=== PATIENT | male | born 1965 | race Caucasian/White ===

== ENCOUNTER 2024-02-24 20:15 | Observation (INO) | payer BC, OTHER ==
[2024-02-24] MEDS ORDERED: Hydromorphone 1 mg/ml Injection IV PRN (21:40)
[2024-02-24 21:44] LABS: Absolute Neutrophil Ct (ANC) 6.49 x10^3/uL (1.78-5.38); BASOPHIL % 0.2 % (0.2-1.2); Basophil (Absolute #) 0.02 x10^3/uL (0.01-0.08); Eosinophil % 0.8 % (0.8-7.0); Eosinophil (Absolute #) 0.07 x10^3/uL (0.04-0.54); Hemoglobin 13.3 g/dL (13.7-17.5); IMMATURE GRAN # 0.05 x10^3u/L (0.001-0.031); IMMATURE GRAN % 0.6 % (0.001-0.429); Lymphocyte (Absolute #) 1.31 x10^3/uL (1.32-3.57); Lymphocytes % 15.7 % (21.8-53.1); Mean Cell Volume 87.4 fL (79.0-92.2); Mean Corpuscular Hemoglobin 28.4 pg (25.7-32.2); Mean Corpuscular Hgb Concent. 32.4 g/dL (32.3-36.5); Mean Platelet Volume 10.7 fL (9.4-12.4); Monocytes % 4.8 % (5.3-12.2); Neutrophil % 77.9 % (34.0-67.9); Platelet Count 222 x10^3/uL (163-337); Red Blood Count 4.69 x10^6/uL (4.63-6.08); Red Cell Distribution Width 13.2 % (11.6-14.4); White Blood Count 8.3 x10^3/uL (4.23-9.07)
[2024-02-24] MEDS ORDERED: Zofran 4 MG/2 ML VIAL ONE (21:44)
[2024-02-24] MEDS ORDERED: Sodium Chloride 0.9% 1000 ML 1,000 ML ONE (21:44)
[2024-02-24] MEDS ORDERED: Hydromorphone 1 mg/ml Injection ONE (21:44)
--- NOTE | 2024-02-24 21:44 | ERPHSYRPT ---
- History of Present Illness Time Seen by Provider: 02/24/24 21:30 Historian: patient Exam Limitations: no limitations Patient Subjective Stated Complaint: pt was at work when he got dizzy and lightheaded that has since resolved. pt now c/o upper abd pain/epigastric pain a fter drinking a "bunch of water" Triage Nursing Assessment: pt ambulatory to bed by self with steady gait, pt alert and oriented x3, skin pwd, pt c/o upper abd pain/epigastric since 1899, slight nausea, pt had BM today that was normal per patient, abd distended. tender upon palpitation. Timing/Duration: today Activities at Onset: none Quality: aching, burning, cramping, dullness, fullness, sharpness, stabbing, throbbing Abdominal Pain Onset Location: RUQ, RLQ Pain Radiation: no radiation Severity of Pain-Max: mild Severity of Pain-Current: mild Modifying Factors: Improves With: nothing Associated Symptoms: denies symptoms Previous symptoms: no prior history Allergies/Adverse Reactions: No Known Drug Allergies Allergy (Verified 02/24/24 20:50) Home Medications: Fluoxetine HCl [Prozac] 20 mg PO DAILY 12/07/15 [History] Metoprolol Succinate 25 mg Xl* [Toprol-Xl 25MG Tablets] 25 mg PO DAILY 12/07/15 [History] PANTOPRAZOLE 40 mg Tablet [Protonix 40MG Tablet] 40 mg PO DAILY 12/07/15 [History] Rosuvastatin Calcium 10 mg PO DAILY 02/24/24 [History] Hx Tetanus, Diphtheria Vaccination/Date Given: Yes Hx Influenza Vaccination/Date Given: No Hx Pneumococcal Vaccination/Date Given: No Immunizations Up to Date: No Travel Risk - International Travel If Yes, where;: N - Emerging Infectious Disease Are you exhibiting symptoms associated with any current EIDs: Yes Symptoms: Abdominal Pain - Review of Systems Eyes: No Symptoms Ears, Nose, & Throat: No Symptoms Respiratory: No Symptoms Cardiac: No Symptoms Abdominal/Gastrointestinal: No Symptoms, Abdominal Pain, Nausea Genitourinary Symptoms: No Symptoms Musculoskeletal: No Symptoms - Past Medical History Pertinent Past Medical History: Yes Neurological History: No Pertinent History ENT History: No Pertinent History Cardiac History: High Cholesterol, Hypertension Respiratory History: No Pertinent History Endocrine Medical History: No Pertinent History Musculoskeletal History: No Pertinent History GI Medical History: GERD History: No Pertinent History Psycho-Social History: No Pertinent History Male Reproductive Disorders: No Pertinent History - Past Surgical History Past Surgical History: Yes Neuro Surgical History: No Pertinent History Cardiac: Cardiac Catheterization Respiratory: No Pertinent History Gastrointestinal: No Pertinent History Genitourinary: No Pertinent History Musculoskeletal: Orthopedic Surgery Male Surgical History: No Pertinent History Other Surgical History: knee, neck - Social History Smoking Status: Never smoker Exposure to second hand smoke: No Drug Use: none Patient Lives Alone: No - Social Determinants of Health Will the patient participate in the screening: Yes Do you worry about a steady place to live?: No Do you have any problems with any of the following?: No known problems In the past 12 months,have you had to go without utilities?: No Transportation Issues: No Has anyone in your support network made you feel unsafe?: No Have you or anyone in your house had to go without enough: No - Nursing Vital Signs Nursing Vital Signs: Initial Vital Signs Temperature 97.7 F 02/24/24 20:54 Pulse Rate 64 02/24/24 20:54 Respiratory Rate 21 02/24/24 20:54 Blood Pressure 182/87 02/24/24 20:54 O2 Sat by Pulse Oximetry 99 02/24/24 20:54 Pain Scale Pain Intensity 5 - Physical Exam General Appearance: mild distress Eye Exam: PERRL/EOMI Ears, Nose, Throat Exam: normal ENT inspection Respiratory Exam: normal breath sounds Cardiovascular Exam: regular rate/rhythm Gastrointestinal/Abdomen Exam: soft, tenderness, rebound, other (Patient is tender in the right upper quadrant and right lower quadrant with guarding and rebound) Rectal Exam: deferred SpO2: 99 Ordered Tests: Active Orders 24 hr Category Date Time Status ABDOMEN AND PELVIS W CONTRAST [CT] Stat Exams 02/24/24 21:39 Completed AMYLASE Stat Lab 02/24/24 21:30 Completed CBC W DIFF Stat Lab 02/24/24 21:30 Completed CMP Stat Lab 02/24/24 21:30 Completed Lactic Acid Stat Lab 02/24/24 21:39 Completed UA W/RFX UR CULTURE Stat Lab 02/24/24 23:14 Completed Transfer Order Routine Transfer 02/25/24 Ordered Medication Summary Generic Name Dose Route Start Last Admin Trade Name Freq PRN Reason Stop Dose Admin Hydromorphone HCl 1 mg 02/24/24 21:40 Hydromorphone 1 Mg/1ml Inj IV 02/29/24 21:39 Q4H PRN PRN PAIN Discontinued Medications Generic Name Dose Route Start Last Admin Trade Name Fara PRN Reason Stop Dose Admin Hydromorphone HCl 1 mg 02/25/24 00:21 02/25/24 00:33 Hydromorphone 1 Mg/1ml Inj IV 02/25/24 00:22 1 mg STAT ONE Administration Sodium Chloride 1,000 mls @ 999 mls/hr 02/24/24 21:41 02/24/24 23:12 Sodium Chloride 0.9% 1000 Ml IV 02/24/24 22:41 Infused .Q1H1M STA Infusion Sodium Chloride Confirm 02/24/24 21:44 Sodium Chloride 0.9% 1000 Ml Administered 02/24/24 21:45 Dose 1,000 mls @ ud .ROUTE .STK-MED ONE Ondansetron HCl 4 mg 02/24/24 21:40 02/24/24 21:47 Ondansetron Hcl 4 Mg/2 Ml Vial IV 02/24/24 21:41 4 mg STAT ONE Administration Ondansetron HCl Confirm 02/24/24 21:44 Ondansetron Hcl 4 Mg/2 Ml Vial Administered 02/24/24 21:45 Dose 4 mg .ROUTE .STK-MED ONE Ondansetron HCl 4 mg 02/25/24 00:22 02/25/24 00:33 Ondansetron Hcl 4 Mg/2 Ml Vial IV 02/25/24 00:23 4 mg STAT ONE Administration Ondansetron HCl Confirm 02/25/24 00:32 Ondansetron Hcl 4 Mg/2 Ml Vial Administered 02/25/24 00:33 Dose 4 mg .ROUTE .STK-MED ONE Lab/Rad Data: Laboratory Result Diagrams 02/24/24 21:30 02/24/24 21:30 Laboratory Results 02/24/24 02/24/24 02/24/24 Range/Units 23:14 21:39 21:30 WBC (4.23-9.07) x10^3/uL RBC (4.63-6.08) x10^6/uL Hgb (13.7-17.5) g/dL Hct (40.1-51.0) % MCV (79.0-92.2) fL MCH (25.7-32.2) pg MCHC (32.3-36.5) g/dL RDW (11.6-14.4) % Plt Count (163-337) x10^3/uL MPV (9.4-12.4) fL Gran % (34.0-67.9) % Immature Gran % (Auto) (0.001-0.429) % Nucleat RBC Rel Count (0.00-0.2) % Eos # (Auto) (0.04-0.54) x10^3/uL Immature Gran # (Auto) (0.001-0.031) x10^3u/L Absolute Lymphs (auto) (1.32-3.57) x10^3/uL Absolute Monos (auto) (0.30-0.82) x10^3/uL Absolute Nucleated RBC (0.00-0.012) x10^3u/L Lymphocytes % (21.8-53.1) % Monocytes % (5.3-12.2) % Eosinophils % (0.8-7.0) % Basophils % (0.2-1.2) % Absolute Granulocytes (1.78-5.38) x10^3/uL Basophils # (0.01-0.08) x10^3/uL Sodium 139 (135-145) mmol/L Potassium 3.8 (3.5-5.1) mmol/L Chloride 104 (98-107) mmol/L Carbon Dioxide 26 (22-30) mmol/L Anion Gap 12.6 (5-15) MEQ/L BUN 21 H (9-20) mg/dL Creatinine 1.12 (0.66-1.25) mg/dL Estimated GFR 77.1 ML/MIN Glucose 117 H (74-106) mg/dL Lactic Acid 1.5 (0.4-2.0) Calcium 9.2 (8.4-10.2) mg/dL Total Bilirubin 1.10 (0.2-1.3) mg/dL AST 155 H (17-59) U/L ALT 105 H (0-50) U/L Alkaline Phosphatase 165 H (38-126) U/L Serum Total Protein 6.8 (6.3-8.2) g/dL Albumin 4.1 (3.5-5.0) g/dL Amylase 73 (30-110) U/L Urine Color Yellow (Yellow) Urine Appearance Clear (Clear) Urine pH 5.5 (4.6-8.0) Ur Specific [place] >=1.030 A (1.005-1.030) Urine Protein Negative (Negative) Urine Glucose (UA) Negative (Negative) mg/dL Urine Ketones 15 A (Negative) Urine Blood Negative (Negative) Urine Nitrite Negative (Negative) Urine Bilirubin Negative (Negative) Urine Urobilinogen 1.0 A (0.2) mg/dL Ur Leukocyte Esterase Negative (Negative) U Hyaline Cast (Auto) NONE SEEN (0-2) /LPF Urine Microscopic RBC 0-2 (0-5) /HPF Urine Microscopic WBC 0-2 (0-5) /HPF Ur Epithelial Cells None Seen (None Seen) /HPF Urine Bacteria None Seen (None Seen) /HPF Urine Culture Reflexed NO (NO) 02/24/24 Range/Units 21:30 WBC 8.3 (4.23-9.07) x10^3/uL RBC 4.69 (4.63-6.08) x10^6/uL Hgb 13.3 L (13.7-17.5) g/dL Hct 41.0 (40.1-51.0) % MCV 87.4 (79.0-92.2) fL MCH 28.4 (25.7-32.2) pg MCHC 32.4 (32.3-36.5) g/dL RDW 13.2 (11.6-14.4) % Plt Count 222 (163-337) x10^3/uL MPV 10.7 (9.4-12.4) fL Gran % 77.9 H (34.0-67.9) % Immature Gran % (Auto) 0.6 H (0.001-0.429) % Nucleat RBC Rel Count 0.0 (0.00-0.2) % Eos # (Auto) 0.07 (0.04-0.54) x10^3/uL Immature Gran # (Auto) 0.05 H (0.001-0.031) x10^3u/L Absolute Lymphs (auto) 1.31 L (1.32-3.57) x10^3/uL Absolute Monos (auto) 0.40 (0.30-0.82) x10^3/uL Absolute Nucleated RBC 0.00 (0.00-0.012) x10^3u/L Lymphocytes % 15.7 L (21.8-53.1) % Monocytes % 4.8 L (5.3-12.2) % Eosinophils % 0.8 (0.8-7.0) % Basophils % 0.2 (0.2-1.2) % Absolute Granulocytes 6.49 H (1.78-5.38) x10^3/uL Basophils # 0.02 (0.01-0.08) x10^3/uL Sodium (135-145) mmol/L Potassium (3.5-5.1) mmol/L Chloride (98-107) mmol/L Carbon Dioxide (22-30) mmol/L Anion Gap (5-15) MEQ/L BUN (9-20) mg/dL Creatinine (0.66-1.25) mg/dL Estimated GFR ML/MIN Glucose (74-106) mg/dL Lactic Acid (0.4-2.0) Calcium (8.4-10.2) mg/dL Total Bilirubin (0.2-1.3) mg/dL AST (17-59) U/L ALT (0-50) U/L Alkaline Phosphatase (38-126) U/L Serum Total Protein (6.3-8.2) g/dL Albumin (3.5-5.0) g/dL Amylase (30-110) U/L Urine Color (Yellow) Urine Appearance (Clear) Urine pH (4.6-8.0) Ur Specific [place] (1.005-1.030) Urine Protein (Negative) Urine Glucose (UA) (Negative) mg/dL Urine Ketones (Negative) Urine Blood (Negative) Urine Nitrite (Negative) Urine Bilirubin (Negative) Urine Urobilinogen (0.2) mg/dL Ur Leukocyte Esterase (Negative) U Hyaline Cast (Auto) (0-2) /LPF Urine Microscopic RBC (0-5) /HPF Urine Microscopic WBC (0-5) /HPF Ur Epithelial Cells (None Seen) /HPF Urine Bacteria (None Seen) /HPF Urine Culture Reflexed (NO) - Progress Progress Note: Patient was seen and evaluated for abdominal pain labs and CT of the abdomen pelvis and IV fluids and analgesia was ordered 02/24/24 21:44 02/25/24 01:51 CT scan revealed few faintly radiodense calculi in the gallbladder with diffuse edematous wall thickening and mild pericholecystic edema appearances likely represent evolving acute calculus cholecystitis clinical and laboratory correlation is advised. Patient was informed of the need for surgical consultation I spoke with Dr. Laurent the surgeon on-call , he was updated with lab results and the CT results he wants the patient admitted to the hospitalist service. I then spoke to the hospitalist he was updated with the patient's lab results and CT results he will admit the patient. She was updated with the plan and is agreeable and has no further questions at this time Medical Desision Making - Discussion of managment Care discussed with:: hospitalist ([place]) Reviewed:: Test results, Need for additional workup Agreed on:: decision to admit, place in obs Will see patient: in hospital - Departure Departure Disposition: Observation Clinical Impression: Acute abdominal pain, Cholecystitis, acute with cholelithiasis, Liver enzyme elevation Condition: Stable Critical Care Time: No Referrals: SADAF WATTS MD [Primary Care Provider] - Follow up/PCP as directed
[2024-02-24] MEDS: Sodium Chloride 0.9% 1000 ML 1,000 ML IV STA (21:46)
[2024-02-24] MEDS: Zofran 4 MG/2 ML VIAL IV ONE (21:47)
[2024-02-24 21:55] LABS: ALBUMIN 4.1 g/dL (3.5-5.0); ANION GAP 12.6 MEQ/L (5-15); BILIRUBIN,TOTAL 1.1 mg/dL (0.2-1.3); Calcium 9.2 mg/dL (8.4-10.2); Creatinine 1 1.12 mg/dL (0.66-1.25); EST GLOMERULAR FILTRATION RATE 77.1 ML/MIN; Potassium 3.8 mmol/L (3.5-5.1); Total Protein 6.8 g/dL (6.3-8.2)
[2024-02-24 23:22] LABS: Appearance Clear (Clear); Bacteria None Seen /HPF (None Seen); Bilirubin Negative (Negative); Blood Negative (Negative); Epithelial Cells None Seen /HPF (None Seen); Glucose, Urine Negative (Negative); Hyaline Casts NONE SEEN /LPF (0-2); Ketones 15 (Negative); Leukocyte Esterase Negative (Negative); Nitrite Negative (Negative); Ph 5.5 (4.6-8.0); Protein,Urine Dip Negative (Negative); RBC 0-2 /HPF (0-5); Specific Gravity >=1.030 (1.005-1.030); WBC 0-2 /HPF (0-5)
[2024-02-24 23:25] LABS: ADD URINE CULTURE? NO (NO)
--- NOTE | 2024-02-24 23:25 | XRAY ---
CLINICAL HISTORY: abdominal pain COMPARISON: None. TECHNIQUE: CT scan of the abdomen and pelvis was performed with IV contrast 80 cc Isovue 370. Coronal and sagittal reconstructive images were also obtained. One of the following dose reduction techniques were utilized for this exam: Automated exposure control, adjustment of the mA and/or kV according to patient size, use of iterative reconstruction. FINDINGS: Abdomen: Few faintly radiodense calculi seen in gallbladder with diffuse edematous wall thickening and mild pericholecystic edema, representing acute calculus cholecystitis. The liver is normal in size. No focal or diffuse parenchymal abnormality. The portal vein, intrahepatic biliary radicals and the bile ducts are normal. The spleen, pancreas, adrenal glands are unremarkable. The kidneys are unremarkable. They are normal in size and shape. No calculi or hydronephrosis. The ascending colon, the transverse colon, the descending colon, visualized small bowel loops are unremarkable. Appendix appears unremarkable. Pelvis: The urinary bladder is unremarkable. The rectosigmoid colon is unremarkable. The prostate is unremarkable. The pelvic vasculature is unremarkable. No evidence of pelvic lymphadenopathy. Mild degenerative changes in lumbar spine. Straightening of the lumbar spine is likely secondary to muscular spasm. IMPRESSION: Few faintly radiodense calculi in the gallbladder with diffuse edematous wall thickening and mild pericholecystic edema. Appearances likely represent evolving acute calculus cholecystitis. Clinical and laboratory correlation is advised. [facility] ER was called at [phone] at 10:16 PM CHECK GRADER, 02/24/[address] Contreras was informed about the presence of medical findings. Electronically Signed by: Lee Ayers MD. (02/24/2024 23:20:32 EDT)
[2024-02-25] MEDS ORDERED: Zofran 4 MG/2 ML VIAL ONE ×2 (00:32→15:46)
[2024-02-25] MEDS ORDERED: Hydromorphone 1 mg/ml Injection ONE (00:32)
[2024-02-25] MEDS: Zofran 4 MG/2 ML VIAL IV ONE (00:33)
[2024-02-25] MEDS: Hydromorphone 1 mg/ml Injection IV ONE (00:33)
--- NOTE | 2024-02-25 03:05 | PCM.HP ---
History of Present Illness - Chief Complaint Chief Complaint: abdominal pain Date: 02/25/24 History of Present Illness: 58 y/o M with h/o HTN, hyperlipidemia, who presents with one day of severe sharp midepigastric and RUQ abdominal pain, "worst of my life", initially after drinking some water, constant, associated with nausea, relieved only by Dilaudid, radiating to his back. Has no h/o prior gallbladder disease. No prior abdominal surgeries. No smoking history. No fevers. Pain is starting to recur as his original Dilaudid is wearing off. - Review of Systems Constitutional: No Fever, No Malaise Eyes: No Eye Pain, No Vision Changes Ears, Nose, & Throat: No Nose Congestion, No Throat Pain Respiratory: No Cough, No Short Of Breath Cardiac: No Chest Pain, No Edema Abdominal/Gastrointestinal: Abdominal Pain, Nausea, No Vomiting, No Diarrhea Genitourinary Symptoms: No Dysuria, No Frequency Musculoskeletal: Back Pain, No Arthralgias Skin: No Symptoms Medications & Allergies Home Medications: Home Medication List Fluoxetine HCl [Prozac] 20 mg PO DAILY 12/07/15 [History Confirmed 02/24/24] Metoprolol Succinate 25 mg Xl* [Toprol-Xl 25MG Tablets] 25 mg PO DAILY 12/07/15 [History Confirmed 02/24/24] PANTOPRAZOLE 40 mg Tablet [Protonix 40MG Tablet] 40 mg PO DAILY 12/07/15 [History Confirmed 02/24/24] Rosuvastatin Calcium 10 mg PO DAILY 02/24/24 [History Confirmed 02/24/24] Allergies/Adverse Reactions: Allergies Allergy/AdvReac Type Severity Reaction Status Date / Time No Known Drug Allergies Allergy Verified 02/24/24 20:50 - Past Medical History Past Medical History: Yes Neurological History: No Pertinent History ENT History: No Pertinent History Cardiac History: High Cholesterol, Hypertension Respiratory History: No Pertinent History Endocrine Medical History: No Pertinent History Musculoskelatal History: No Pertinent History GI Medical History: GERD History: No Pertinent History Pyscho-Social History: No Pertinent History Male Reproductive Disorders: No Pertinent History - Past Surgical History Past Surgical History: Yes Neuro Surgical History: No Pertinent History Cardiac History: Cardiac Catheterization Respiratory Surgery: No Pertinent History GI Surgical History: No Pertinent History Genitourinary Surgical Hx: No Pertinent History Musculskeletal Surgical Hx: Orthopedic Surgery Male Surgical History: No Pertinent History Other Surgical History: knee, neck - Social History Smoking Status: Never smoker Exposure to second hand smoke: No Alcohol: Occasionally Drug Use: none - Social Determinants of Health Will the patient participate in the screening: Yes Do you worry about a steady place to live?: No Do you have any problems with any of the following?: No known problems In the past 12 months,have you had to go without utilities?: No Have you or anyone in your house had to go without enough: No Transportation Issues: No Has anyone in your support network made you feel unsafe?: No - Physical Exam Vital Signs: Vital Signs - 24 hr Temp Pulse Resp BP BP Pulse Ox 02/25/24 02:00 98 H 24 143/66 92 L 02/25/24 01:54 99 02/25/24 01:30 93 H 24 154/68 93 L 02/25/24 01:00 94 H 25 H 132/44 96 02/25/24 00:30 93 H 27 H 150/72 96 02/25/24 00:00 90 26 H 128/47 96 02/24/24 23:31 81 28 H 161/76 96 02/24/24 23:00 75 18 148/80 99 02/24/24 22:30 76 16 149/73 98 02/24/24 22:28 74 19 159/73 99 02/24/24 22:00 69 26 H 143/76 96 02/24/24 21:30 65 29 H 184/92 96 02/24/24 21:00 63 22 171/83 99 02/24/24 20:54 97.7 F 64 21 182/87 99 General Appearance: no apparent distress Neurologic Exam: alert, oriented x 3 Eye Exam: eyes nml inspection Respiratory Exam: normal breath sounds, lungs clear, No respiratory distress Cardiovascular Exam: regular rate/rhythm, normal heart sounds, No edema Gastrointestinal/Abdomen Exam: tenderness (RUQ), other (hyperactive bowel sounds), No distention, No guarding, No rebound Skin Exam: normal color, No rash Results - Labs Lab/Micro Results: Lab Results-Last 24 Hours 02/24/24 02/24/24 02/24/24 Range/Units 21:30 21:30 21:39 WBC 8.3 (4.23-9.07) x10^3/uL RBC 4.69 (4.63-6.08) x10^6/uL Hgb 13.3 L (13.7-17.5) g/dL Hct 41.0 (40.1-51.0) % MCV 87.4 (79.0-92.2) fL MCH 28.4 (25.7-32.2) pg MCHC 32.4 (32.3-36.5) g/dL RDW 13.2 (11.6-14.4) % Plt Count 222 (163-337) x10^3/uL MPV 10.7 (9.4-12.4) fL Gran % 77.9 H (34.0-67.9) % Immature Gran % (Auto) 0.6 H (0.001-0.429) % Nucleat RBC Rel Count 0.0 (0.00-0.2) % Eos # (Auto) 0.07 (0.04-0.54) x10^3/uL Immature Gran # (Auto) 0.05 H (0.001-0.031) x10^3u/L Absolute Lymphs (auto) 1.31 L (1.32-3.57) x10^3/uL Absolute Monos (auto) 0.40 (0.30-0.82) x10^3/uL Absolute Nucleated RBC 0.00 (0.00-0.012) x10^3u/L Lymphocytes % 15.7 L (21.8-53.1) % Monocytes % 4.8 L (5.3-12.2) % Eosinophils % 0.8 (0.8-7.0) % Basophils % 0.2 (0.2-1.2) % Absolute Granulocytes 6.49 H (1.78-5.38) x10^3/uL Basophils # 0.02 (0.01-0.08) x10^3/uL Sodium 139 (135-145) mmol/L Potassium 3.8 (3.5-5.1) mmol/L Chloride 104 (98-107) mmol/L Carbon Dioxide 26 (22-30) mmol/L Anion Gap 12.6 (5-15) MEQ/L BUN 21 H (9-20) mg/dL Creatinine 1.12 (0.66-1.25) mg/dL Estimated GFR 77.1 ML/MIN Glucose 117 H (74-106) mg/dL Lactic Acid 1.5 (0.4-2.0) Calcium 9.2 (8.4-10.2) mg/dL Total Bilirubin 1.10 (0.2-1.3) mg/dL AST 155 H (17-59) U/L ALT 105 H (0-50) U/L Alkaline Phosphatase 165 H (38-126) U/L Serum Total Protein 6.8 (6.3-8.2) g/dL Albumin 4.1 (3.5-5.0) g/dL Amylase 73 (30-110) U/L Urine Color (Yellow) Urine Appearance (Clear) Urine pH (4.6-8.0) Ur Specific [place] (1.005-1.030) Urine Protein (Negative) Urine Glucose (UA) (Negative) mg/dL Urine Ketones (Negative) Urine Blood (Negative) Urine Nitrite (Negative) Urine Bilirubin (Negative) Urine Urobilinogen (0.2) mg/dL Ur Leukocyte Esterase (Negative) U Hyaline Cast (Auto) (0-2) /LPF Urine Microscopic RBC (0-5) /HPF Urine Microscopic WBC (0-5) /HPF Ur Epithelial Cells (None Seen) /HPF Urine Bacteria (None Seen) /HPF Urine Culture Reflexed (NO) 02/24/24 Range/Units 23:14 WBC (4.23-9.07) x10^3/uL RBC (4.63-6.08) x10^6/uL Hgb (13.7-17.5) g/dL Hct (40.1-51.0) % MCV (79.0-92.2) fL MCH (25.7-32.2) pg MCHC (32.3-36.5) g/dL RDW (11.6-14.4) % Plt Count (163-337) x10^3/uL MPV (9.4-12.4) fL Gran % (34.0-67.9) % Immature Gran % (Auto) (0.001-0.429) % Nucleat RBC Rel Count (0.00-0.2) % Eos # (Auto) (0.04-0.54) x10^3/uL Immature Gran # (Auto) (0.001-0.031) x10^3u/L Absolute Lymphs (auto) (1.32-3.57) x10^3/uL Absolute Monos (auto) (0.30-0.82) x10^3/uL Absolute Nucleated RBC (0.00-0.012) x10^3u/L Lymphocytes % (21.8-53.1) % Monocytes % (5.3-12.2) % Eosinophils % (0.8-7.0) % Basophils % (0.2-1.2) % Absolute Granulocytes (1.78-5.38) x10^3/uL Basophils # (0.01-0.08) x10^3/uL Sodium (135-145) mmol/L Potassium (3.5-5.1) mmol/L Chloride (98-107) mmol/L Carbon Dioxide (22-30) mmol/L Anion Gap (5-15) MEQ/L BUN (9-20) mg/dL Creatinine (0.66-1.25) mg/dL Estimated GFR ML/MIN Glucose (74-106) mg/dL Lactic Acid (0.4-2.0) Calcium (8.4-10.2) mg/dL Total Bilirubin (0.2-1.3) mg/dL AST (17-59) U/L ALT (0-50) U/L Alkaline Phosphatase (38-126) U/L Serum Total Protein (6.3-8.2) g/dL Albumin (3.5-5.0) g/dL Amylase (30-110) U/L Urine Color Yellow (Yellow) Urine Appearance Clear (Clear) Urine pH 5.5 (4.6-8.0) Ur Specific [place] >=1.030 A (1.005-1.030) Urine Protein Negative (Negative) Urine Glucose (UA) Negative (Negative) mg/dL Urine Ketones 15 A (Negative) Urine Blood Negative (Negative) Urine Nitrite Negative (Negative) Urine Bilirubin Negative (Negative) Urine Urobilinogen 1.0 A (0.2) mg/dL Ur Leukocyte Esterase Negative (Negative) U Hyaline Cast (Auto) NONE SEEN (0-2) /LPF Urine Microscopic RBC 0-2 (0-5) /HPF Urine Microscopic WBC 0-2 (0-5) /HPF Ur Epithelial Cells None Seen (None Seen) /HPF Urine Bacteria None Seen (None Seen) /HPF Urine Culture Reflexed NO (NO) - Radiology Impressions Radiology Exams & Impressions: Radiology Procedures Category Date Time Status ABDOMEN AND PELVIS W CONTRAST [CT] Stat Exams 02/24/24 21:[address] Abd - evolving acute cholecystitis Assessment/Plan (1) Cholecystitis, acute with cholelithiasis Current Visit: Yes Status: Acute Assessment & Plan: 58 y/o M with h/o HTN, HLP, depression, here with acute cholecystitis. ## Acute cholecystitis - calculous cholecystitis on imaging, with typical pain, mild LFT elevation, but no signs of cholangitis. VS stable. - NPO - NS at 100 ml/hr - Zosyn 3.375 q6h - PRN Zofran, Morphine - Dr. Laurent consulted by ED, will see patient in AM ## Hypertension - BP controlled when pain controlled. - resume home Toprol XL ## Depression - - continue home fluoxetine Code Status: Full code Prophylaxis: low risk, ambulate, OBS stay Diet: NPO Code(s): K80.00 - CALCULUS OF GALLBLADDER W ACUTE CHOLECYST W/O OBSTRUCTION Telemedicine Encounter - Telemedicine Encounter Telemedicine Encounter: "The entirety of this encounter was performed via Telemedicine" This visit was performed using real-time audio and video connection between my location and thepatients locationwith the assistance of a surrogateat the patients location. Written or verbal consent was obtained from the patient/guardian to perform this visit [facility] technology. Any patient questions regarding the telemedicine interaction were answered.
[2024-02-25] MEDS: Sodium Chloride 0.9% 1000 ML 1,000 ML IV SCH (03:25)
[2024-02-25] MEDS: MORPHINE SULFATE 4 MG INJ IV PRN (03:31)
[2024-02-25] MEDS: Zofran 4 MG/2 ML VIAL IV PRN (03:47)
[2024-02-25 04:39] LABS: Hematocrit 39.7 % (40.1-51.0); Hemoglobin 13.2 g/dL (13.7-17.5); Mean Cell Volume 86.3 fL (79.0-92.2); Mean Corpuscular Hemoglobin 28.7 pg (25.7-32.2); Mean Corpuscular Hgb Concent. 33.2 g/dL (32.3-36.5); Mean Platelet Volume 10.4 fL (9.4-12.4); Platelet Count 166 x10^3/uL (163-337); Red Cell Distribution Width 13.3 % (11.6-14.4); White Blood Count 6.8 x10^3/uL (4.23-9.07)
[2024-02-25 04:57] LABS: ANION GAP 14.4 MEQ/L (5-15); BILIRUBIN,TOTAL 2.6 mg/dL (0.2-1.3); Calcium 8.9 mg/dL (8.4-10.2); Creatinine 1 0.91 mg/dL (0.66-1.25); EST GLOMERULAR FILTRATION RATE 98.9 ML/MIN; Potassium 3.7 mmol/L (3.5-5.1); Total Protein 6.7 g/dL (6.3-8.2)
[2024-02-25] MEDS ORDERED: PIPERACILLIN/TAZOBACTAM IV ONE (06:15)
[2024-02-25] MEDS ORDERED: Sodium Chloride 100ML MINI-BAG PLUS 100 ML IV ONE (06:16)
[2024-02-25] MEDS: PIPERACILLIN/TAZOBACTAM 3.375 GM in Sodium Chloride 100ML MINI-BAG PLUS 100 ML IV SCH (06:17)
[2024-02-25] MEDS: Toprol-Xl 25MG Tablets PO SCH (09:29)
[2024-02-25] MEDS: Protonix 40MG Tablet PO SCH (09:29)
[2024-02-25] MEDS: Prozac 20 MG PO SCH (09:29)
[2024-02-25] MEDS ORDERED: FLUOXETINE HCL 20 MG/5 ML PO SCH (10:00)
[2024-02-25] MEDS ORDERED: NON-FORMULARY ITEM (Rosuvastatin Calcium [Rosuvastatin Calcium] 10 MG Tablet) PO SCH (10:00)
[2024-02-25] MEDS: Lactated Ringers 1,000 ML IV SCH (11:39)
--- NOTE | 2024-02-25 12:37 | XRAY ---
Indication: Abdomen pain. Elevated amylase. Conventional MRCP performed. Comparison: None Biliary tree appears normal. Common bile duct diameter is 4-5 mm. No filling defect or choledochal stone. Pancreatic duct not visualized. Gallbladder is moderately distended with multiple gallstones, largest in neck of gallbladder measuring 2 cm. Also gallbladder wall thickening up to 6 mm with tiny pericholecystic fluid. Remaining visualized liver, pancreas, spleen, adrenal glands, kidneys, stomach, bowel loops, aorta, and IVC are unremarkable. No abnormal bone marrow signal. Impression: Distended gallbladder with cholelithiasis, abnormal wall thickening, and pericholecystic fluid favoring acute cholecystitis. Remaining MRCP is negative.
[2024-02-25] MEDS ORDERED: Lactated Ringers 1,000 ML IV ONE (14:49)
[2024-02-25] MEDS ORDERED: Sensorcaine 0.25% 10 ML ONE (14:49)
[2024-02-25] MEDS ORDERED: ROCURONIUM BROMIDE IV ONE ×2 (14:59→15:24)
[2024-02-25] MEDS ORDERED: DIPRIVAN 200 MG/20 ML IV ONE (14:59)
[2024-02-25] MEDS ORDERED: Versed 2 MG/2 ML Injection ONE (15:00)
[2024-02-25] MEDS ORDERED: SUBLIMAZE 100 MCG/2 ML ONE (15:00)
[2024-02-25] MEDS ORDERED: Xylocaine-Mpf 2% 5 Ml Vial ONE (15:00)
[2024-02-25] MEDS ORDERED: BRIDION 200MG/2ML IV ONE (15:45)
[2024-02-25] MEDS ORDERED: TORAdol 30 mg Injection ONE (15:45)
[2024-02-25] MEDS ORDERED: MORPHINE SULFATE 10 MG/ML ONE (15:52)
[2024-02-25] MEDS ORDERED: TYLENOL 325 MG ONE ×2 (17:37→23:12)
[2024-02-25] MEDS ORDERED: TRANDATE 20 MG/4 ML SYRINGE IV ONE (17:51)
[2024-02-25] MEDS: TRANDATE 20 MG/4 ML SYRINGE IV ONE (17:53)
[2024-02-25 18:05] LABS: A-aADO2 321; ABG POTASSIUM 4.7 (3.5-5.1); ABG SITE RIGHT RADIAL; ALLEN TEST OK? YES; ARTERIAL BLD GAS O2 SATURATION 86.6 % (95-100); ARTERIAL BLOOD GAS BASE EXCESS -3.5 (-2.0-2.0); ARTERIAL BLOOD GAS FIO2 60 %; ARTERIAL BLOOD GAS PCO2 41 mmHg (35-45); ARTERIAL BLOOD GAS PO2 56 mmHg (75-100); ARTERIAL BLOOD GAS pH 7.34 (7.35-7.45); CARBOXYHEMOGLOBIN 0.6 % THgb (0.0-6.9); HCO3- 22.1 (22-28); paO2 pAO1 0.15
[2024-02-25 18:18] LABS: Hematocrit 38.2 % (40.1-51.0); Hemoglobin 12.5 g/dL (13.7-17.5); Mean Cell Volume 88.2 fL (79.0-92.2); Mean Corpuscular Hemoglobin 28.9 pg (25.7-32.2); Mean Corpuscular Hgb Concent. 32.7 g/dL (32.3-36.5); Mean Platelet Volume 10.3 fL (9.4-12.4); Platelet Count 190 x10^3/uL (163-337); Red Blood Count 4.33 x10^6/uL (4.63-6.08); Red Cell Distribution Width 14.1 % (11.6-14.4); White Blood Count 4.8 x10^3/uL (4.23-9.07)
[2024-02-25] MEDS: TYLENOL 325 MG PO PRN (18:30)
[2024-02-25 18:39] LABS: ALBUMIN 3.6 g/dL (3.5-5.0); ANION GAP 13.9 MEQ/L (5-15); BILIRUBIN,TOTAL 5.1 mg/dL (0.2-1.3); Calcium 7.7 mg/dL (8.4-10.2); Creatinine 1 1.17 mg/dL (0.66-1.25); EST GLOMERULAR FILTRATION RATE 73.2 ML/MIN; Potassium 3.9 mmol/L (3.5-5.1); Total Protein 6.3 g/dL (6.3-8.2)
[2024-02-25 18:50] LABS: TROPONIN 0.026 ng/mL (0.000-0.033)
--- NOTE | 2024-02-25 19:44 | TM.IN ---
Tele-Medicine Incident Note - Incident Note Tel-Medicine Incident Note: 02/25/241937 I was called for a rapid response on the patient at 5:39 pm. Kelly PATEL came on to the telemedicine cart right away and I took over few minutes later and stayed until the patient stabilized. I do not have the operative report but per nursing report there were no complications during patient's cholecystectomy. However post operatively in the patient room patient started having chills/rigors, hypoxia and a rectal temp of 101. His SBP was elevated to 190s. He was placed on high flow oxygen, and given fluid bolus as well as labetalol 10 mg IV once. Patient's mental status improved with these interventions and he was following commands. Labs were drawn, CXR done. Labs significant for elevated bilirubin and lactic acid, but otherwise stable and notably negative for trop, BNP of 800s. ABG showed hypoxemia with pH of 7.34. CXR on my read does not show any infiltrate, opacity or fluid collection (awaiting formal read). By the time patient staiblized while I was on the telecart, his vitals were HR 91, BP 139/68, saturating 94% on 100% oxymizer and mental status was at baseline. I suspect the patient's symptoms were likely due to instrumentation of the infected gall bladder area (chills/rigors, sudden spike in temp) though the cause of significant hypoxia still needs to be investigated. Plan: -complete second liter of bolus then repeat lactic acid. Continue NS at 100 cc/hour -continue zosyn -CT angio to evaluate the cause of hypoxemia, rule out PE Telemedicine Encounter - Telemedicine Encounter Telemedicine Encounter: "The entirety of this encounter was performed via Telemedicine" This visit was performed using real-time audio and video connection between my location and thepatients locationwith the assistance of a surrogateat the patients location. Written or verbal consent was obtained from the patient/guardian to perform this visit using[employer] technology. Any patient questions regarding the telemedicine interaction were answered.
[2024-02-25] MEDS: VANCOMYCIN 1 GRAM/200 ML BAG 1 GM/200 ML PIGGYBACK IV SCH (21:10)
[2024-02-25] MEDS: PHARMACY DOSING REQUIRED: VANCOMYCIN IV STA (21:19)
[2024-02-25] MEDS ORDERED: DUONEB 0.5-3 MG/3 ml Neb IH ONE (22:17)
[2024-02-25] MEDS: DUONEB 0.5-3 MG/3 ml Neb IH PRN (22:19)
[2024-02-25] MEDS: ZOCOR 20MG PO SCH (23:15)
[2024-02-26] MEDS ORDERED: Zofran 4 MG/2 ML VIAL IV PRN (01:55)
[2024-02-26] MEDS ORDERED: MORPHINE SULFATE 4 MG INJ IV PRN (01:58)
[2024-02-26] MEDS ORDERED: MORPHINE SULFATE 4 MG INJ IV ONE (02:00)
[2024-02-26 02:13] VITALS: BP 110/67; PULSE 80; RESP 24; TEMP 97.6; O2SAT 98
--- NOTE | 2024-02-26 08:36 | XRAY ---
Indication: Code rapid. Comparison: December 07, 2015 Portable chest is now underinflated accentuating cardiopulmonary structures. New minimal lingula subsegmental atelectasis/scarring. No focal infiltrate, consolidation, large effusion, or pneumothorax. Heart not enlarged for AP portable technique. Bony thorax intact again with lower cervical fusion hardware. Impression: Nonacute underinflated chest with lingula atelectasis/scarring.
--- NOTE | 2024-02-26 08:42 | XRAY ---
Indication: Hypoxia. Elevated d-dimer. Status post cholecystectomy. Multiple contiguous axial images obtained through the chest using 80 cc Isovue 370 contrast and PE protocol. Comparison: None Adequate opacification of the pulmonary arteries. Diffuse respiration artifact limits evaluation for pulmonary embolus. No obvious central pulmonary embolus. Heart not enlarged. Aorta is normal in course and caliber. No pathologic mediastinal/hilar lymphadenopathy. Lungs demonstrates scattered patchy consolidating/nonconsolidating airspace disease, right lung greater than left. No effusion or pneumothorax. Bony thorax intact with partially visualized lower cervical fusion hardware. Limited upper abdomen demonstrates fatty liver, 15 cm splenomegaly, and cholecystectomy clips. Also scattered tiny free air presumed related to recent cholecystectomy. Impression: 1. Pulmonary embolus evaluation limited due to diffuse respiration artifact. No obvious central pulmonary embolus. 2. Scattered patchy consolidating/nonconsolidating airspace disease, right lung greater than left. 3. Abdominal tiny free air presumed related to cholecystectomy. 4. Incidental fatty liver and splenomegaly.
--- NOTE | 2024-02-26 15:24 | PCM.DS ---
Discharge Summary Date of Admission: 02/25/24 02:30 Date of Discharge: 02/26/24 Admitting Physician: SARAH FAJARDO MD Primary Care Provider: SADAF WATTS Allergies Allergies No Known Drug Allergies Allergy (Verified 02/24/24 20:50) Hospital Summary - Hospital Course Hospital Course: 58 y/o M with h/o HTN, hyperlipidemia admitted 02/25/[address] imaging demonstrating faintly radiodense calculi in the gallbladder with diffuse edematous wall thickening and mild pericholecystic edema. Appearances likely represent evolving acute calculus cholecystitis. Patient started on Zosyn and surgery consulted. Patient had Lap cholecystecomy performed 02/25/24. Post operatively patient started having chills/rigors, hypoxia and a rectal temp of 101. His SBP was elevated to 190s. He was placed on high flow oxygen, and given fluid bolus as well as labetalol 10 mg IV once. Patient's mental status improved with these interventions and he was following commands. Labs were drawn, CXR done. Labs significant for elevated bilirubin and lactic acid, but otherwise stable and notably negative for trop, BNP of 800s. ABG showed hypoxemia with pH of 7.34. CXR : Nonacute underinflated chest with lingula atelectasis/scarring. CT chest w/PE protocal showing Scattered patchy consolidating/nonconsolidating airspace disease, right lung greater than left.Pulmonary embolus evaluation limited due to diffuse respiration artifact. Abdominal tiny free air presumed related to cholecystectomy. Surgery notified of changes in patient status and recommended transfer to higher level of care. Patient was transferred to [facility]. - Vitals & Intake/Output Vital Signs: Vital Signs Temperature 97.6 F 02/26/24 02:00 Pulse Rate 80 02/26/24 02:00 Respiratory Rate 24 02/26/24 02:00 Blood Pressure 110/67 02/26/24 02:00 O2 Sat by Pulse Oximetry 98 02/26/24 02:00 Intake & Output: Intake & Output 02/24/24 02/25/24 02/26/24 02/27/24 11:59 11:59 11:59 11:59 Intake Total 240 Balance 240 Weight 102 kg - Lab Result Diagrams: 02/25/24 18:14 02/25/24 18:14 Lab Results-Last 24 Hrs: Lab Results-Last 24 Hours 02/25/24 02/25/24 02/25/24 Range/Units 17:36 17:37 18:14 WBC 4.8 (4.23-9.07) x10^3/uL RBC 4.33 L (4.63-6.08) x10^6/uL Hgb 12.5 L (13.7-17.5) g/dL Hct 38.2 L (40.1-51.0) % MCV 88.2 (79.0-92.2) fL MCH 28.9 (25.7-32.2) pg MCHC 32.7 (32.3-36.5) g/dL RDW 14.1 (11.6-14.4) % Plt Count 190 (163-337) x10^3/uL MPV 10.3 (9.4-12.4) fL D-Dimer (0.0-0.50) mg/L Puncture Site RIGHT RADIAL pCO2 41 (35-45) mmHg pO2 56 L (75-100) mmHg Base Excess -3.5 L (-2.0-2.0) O2 Saturation 86.0 L (94-100) g/dF ABG pH 7.34 L (7.35-7.45) ABG HCO3 22.1 (22-28) ABG O2 Sat (Measured) 86.6 L (95-100) % Sukumar Test YES A-a Gradient 321 a/A Ratio 0.15 Hemoglobin 14.0 Carboxyhemoglobin 0.6 (0.0-6.9) % THgb Methemoglobin 0.0 L (1.4-1.5) % Potassium 4.7 (3.5-5.1) Temperature 37.0 C POC O2 Flow Rate 60 % Sodium (135-145) mmol/L Chloride (98-107) mmol/L Carbon Dioxide (22-30) mmol/L Anion Gap (5-15) MEQ/L BUN (9-20) mg/dL Creatinine (0.66-1.25) mg/dL Estimated GFR ML/MIN Glucose (74-106) mg/dL Lactic Acid 4.5 H (0.4-2.0) Calcium (8.4-10.2) mg/dL Total Bilirubin (0.2-1.3) mg/dL AST (17-59) U/L ALT (0-50) U/L Alkaline Phosphatase (38-126) U/L Troponin I (0.000-0.033) ng/mL NT-Pro-B Natriuret Pep (<300) pg/mL Serum Total Protein (6.3-8.2) g/dL Albumin (3.5-5.0) g/dL 02/25/24 02/25/24 02/25/24 Range/Units 18:14 18:14 18:15 WBC (4.23-9.07) x10^3/uL RBC (4.63-6.08) x10^6/uL Hgb (13.7-17.5) g/dL Hct (40.1-51.0) % MCV (79.0-92.2) fL MCH (25.7-32.2) pg MCHC (32.3-36.5) g/dL RDW (11.6-14.4) % Plt Count (163-337) x10^3/uL MPV (9.4-12.4) fL D-Dimer 2.31 H* (0.0-0.50) mg/L Puncture Site pCO2 (35-45) mmHg pO2 (75-100) mmHg Base Excess (-2.0-2.0) O2 Saturation (94-100) g/dF ABG pH (7.35-7.45) ABG HCO3 (22-28) ABG O2 Sat (Measured) (95-100) % Sukumar Test A-a Gradient a/A Ratio Hemoglobin Carboxyhemoglobin (0.0-6.9) % THgb Methemoglobin (1.4-1.5) % Potassium 3.9 (3.5-5.1) Temperature C POC O2 Flow Rate % Sodium 137 (135-145) mmol/L Chloride 107 (98-107) mmol/L Carbon Dioxide 20 L (22-30) mmol/L Anion Gap 13.9 (5-15) MEQ/L BUN 16 (9-20) mg/dL Creatinine 1.17 (0.66-1.25) mg/dL Estimated GFR 73.2 ML/MIN Glucose 132 H (74-106) mg/dL Lactic Acid (0.4-2.0) Calcium 7.7 L (8.4-10.2) mg/dL Total Bilirubin 5.10 H (0.2-1.3) mg/dL AST 580 H (17-59) U/L ALT 865 H (0-50) U/L Alkaline Phosphatase 211 H (38-126) U/L Troponin I 0.026 (0.000-0.033) ng/mL NT-Pro-B Natriuret Pep 879 (<300) pg/mL Serum Total Protein 6.3 (6.3-8.2) g/dL Albumin 3.6 (3.5-5.0) g/dL 02/25/24 02/25/24 02/25/24 Range/Units 20:25 21:31 23:20 WBC (4.23-9.07) x10^3/uL RBC (4.63-6.08) x10^6/uL Hgb (13.7-17.5) g/dL Hct (40.1-51.0) % MCV (79.0-92.2) fL MCH (25.7-32.2) pg MCHC (32.3-36.5) g/dL RDW (11.6-14.4) % Plt Count (163-337) x10^3/uL MPV (9.4-12.4) fL D-Dimer (0.0-0.50) mg/L Puncture Site pCO2 (35-45) mmHg pO2 (75-100) mmHg Base Excess (-2.0-2.0) O2 Saturation (94-100) g/dF ABG pH (7.35-7.45) ABG HCO3 (22-28) ABG O2 Sat (Measured) (95-100) % Sukumar Test A-a Gradient a/A Ratio Hemoglobin Carboxyhemoglobin (0.0-6.9) % THgb Methemoglobin (1.4-1.5) % Potassium (3.5-5.1) Temperature C POC O2 Flow Rate % Sodium (135-145) mmol/L Chloride (98-107) mmol/L Carbon Dioxide (22-30) mmol/L Anion Gap (5-15) MEQ/L BUN (9-20) mg/dL Creatinine (0.66-1.25) mg/dL Estimated GFR ML/MIN Glucose (74-106) mg/dL Lactic Acid 1.3 (0.4-2.0) Calcium (8.4-10.2) mg/dL Total Bilirubin (0.2-1.3) mg/dL AST (17-59) U/L ALT (0-50) U/L Alkaline Phosphatase (38-126) U/L Troponin I 0.055 H* 0.057 H* (0.000-0.033) ng/mL NT-Pro-B Natriuret Pep (<300) pg/mL Serum Total Protein (6.3-8.2) g/dL Albumin (3.5-5.0) g/dL Micro Results-Entire Visit: Microbiology 02/25/24 15:31 Body Fluid Culture - Preliminary Gallbladder GRAM NEGATIVE ID AND SENSITIVITY PENDING - Radiology Exams Ordered Rad Exams-Entire Visit: Radiology Procedures Category Date Time Status ABDOMEN AND PELVIS W CONTRAST [CT] Stat Exams 02/24/24 21:39 Completed CHEST 1 VIEW (PORTABLE) Stat Exams 02/25/24 17:55 Completed CHEST WITH CONTRAST [CT] Stat Exams 02/25/24 20:04 Completed MRI ABD W/O CONTRAST [MRI] Stat Exams 02/25/24 10:58 Completed - Procedures and Test Procedures and Tests throughout Hospitalization: Therapy Orders & Screens 02/25/24 04:07 ST Screen per Nursing Assess ONCE Comment: Protocol Order Physician Instructions: Greater than [address] Admission Screening Reason For Exam: Triggered on Admission Diagnosis: abdominal pain CVA/Dyshpagia/Aphasia: No Cognitive Deficits: No Dehydration/Nutrition Deficit: Yes Reflux: No Oral-Motor Difficulties: No Pneumonia: No Penitentiary Resident: No Total Points: 5 02/25/24 07:30 Oxygen Nasal Cannula 3 lpm Comment: HS Diagnosis: abdominal pain 02/25/24 18:23 EKG ONCE Comment: Diagnosis: abdominal pain 02/25/24 21:23 Incentive Spirometry ROUTINE Comment: Diagnosis: abdominal pain 02/26/24 02:14 BiPap/CPAP ROUTINE Comment: Diagnosis: abdominal pain Respiratory Therapy Assessment DAILY Comment: Diagnosis: abdominal pain Final Diagnosis/Problem List - Final Discharge Diagnosis/Problem (1) Cholecystitis, acute with cholelithiasis Status: Acute Code(s): K80.00 - CALCULUS OF GALLBLADDER W ACUTE CHOLECYST W/O OBSTRUCTION (2) HTN (hypertension) Status: Acute Code(s): I10 - ESSENTIAL (PRIMARY) HYPERTENSION (3) Acute respiratory failure with hypoxia Status: Acute Code(s): J96.01 - ACUTE RESPIRATORY FAILURE WITH HYPOXIA (4) S/P cholecystectomy Status: Acute Code(s): Z90.49 - ACQUIRED ABSENCE OF OTHER SPECIFIED PARTS OF DIGESTIVE TRACT (5) Depression Status: Acute Code(s): F32.A - DEPRESSION, UNSPECIFIED (6) Liver enzyme elevation Status: Acute Code(s): R74.8 - ABNORMAL LEVELS OF OTHER SERUM ENZYMES - Discharge Disposition: DC TO [facility] Condition: Fair Prescriptions: Continue Metoprolol Succinate 25 mg Xl* [Toprol-Xl 25MG Tablets] 25 mg PO DAILY Fluoxetine HCl [Prozac] 20 mg PO DAILY PANTOPRAZOLE 40 mg Tablet [Protonix 40MG Tablet] 40 mg PO DAILY Rosuvastatin Calcium 10 mg PO DAILY Follow up with: SADAF WATTS MD [Primary Care Provider] -
--- NOTE | 2024-02-27 07:38 | CONS ---
REASON FOR CONSULTATION: Cholelithiasis, possible choledocholithiasis. HISTORY: A 58-year-old came in stones, pericholecystic fluid, acute gallbladder. Started with IV fluids, IV antibiotics, n.p.o. He had repeat liver enzymes and his total bilirubin was up to 2.6 and his SGOT had went up by a factor of 10. He had a stat MRCP that was negative. He is not quite jaundiced yet, he is probably close. His abdomen is fairly soft. He has right upper quadrant tenderness but his sclera are still clear. He has had some smaller lesser attacks here recently. He was working, he was welding, he was out in the sun. He got dehydrated. This is a much more significant attack. The MRCP today suggested that he also had marked inflammation, pericholecystic fluid. I think he has a partially gangrenous gallbladder and it is letting some bilirubin come back in the bloodstream. He has an impacted stone in the cystic duct, but I feel he probably does not have a common bile duct stone. Regardless, he needs his gallbladder out today. We will do a laparoscopic cholecystectomy and assess the situation.
--- NOTE | 2024-02-27 07:44 | OP ---
SURGERY DATE/TIME: 02/25/2024 3208 - [id number] PREOPERATIVE DIAGNOSIS: Acute cholecystitis, cholelithiasis. POSTOPERATIVE DIAGNOSIS: Acute cholecystitis, cholelithiasis. PROCEDURE: Laparoscopic cholecystectomy. SURGEON: Burke Laurent MD ANESTHESIA: General endotracheal tube. BLOOD LOSS: None. COMPLICATIONS: None. DRAINS: None. CONDITION: Stable. INDICATIONS: The patient presented with severe attack and his bilirubin actually went from 0.6 up to 2.6. He was having substantial right upper quadrant discomfort. His CT scan showed pericholecystic fluid and an impacted stone in the infundibulum area and does not suggest any common bile duct stones. DESCRIPTION OF PROCEDURE AND FINDINGS: He was taken to surgery. General anesthetic. Routine prep and drape. Veress needle inserted epigastric, insufflated to a pressure of 14. Four 5s. Good visualization. Gallbladder was thickened and basically extremely edematous. The Patt area was edematous. Cystic duct defined, triply Ligaclipped. Critical view had been obtained. Gallbladder rolled out of gallbladder fossa. Hemostasis obtained with cautery. The epigastric port was widened slightly because the gallstone was about 1 cm. It was pulled out in the gallbladder sac. The field was satisfactory. As a matter of fact, the field was quite good. The field was dry. Hole closure device was used with 2 sutures of #0 Vicryl. Insufflation was exsufflated at this time with the suction device. Skin closed with anil. Sterile dressing applied. The patient tolerated the procedure satisfactorily.
== END 2024-02-26 03:50 | disposition home or self-care (01) ==
LOC: ED 20:15 → MED SURG 02-25 02:30
PROVIDERS: ADMIT Internal Medicine; ATTEND Internal Medicine
DX: K80.00 Calculus of gallbladder with acute cholecystitis without obstruction (principal); I10 Essential (primary) hypertension; J96.01 Acute respiratory failure with hypoxia; F32.A Depression, unspecified; R74.8 Abnormal levels of other serum enzymes; E78.5 Hyperlipidemia, unspecified; Z79.899 Other long term (current) drug therapy
CPT/HCPCS: 36415; 36600; 47562; 71045; 71260; 74177; 74181; 80053; 81001; 82150; 82375; 82803; 83605; 83690; 83880; 84484; 85025; 85027; 85379; 87070; 87075; 93005; 93268; 94640; 94660; 94760; 96374; 96375; 99285; G0378; Q3014; 87077; 87186; J1170; J1885; J2250; J2270; J2405; J2704; J3010; A9270-GY; J3370